=== PATIENT | female | born 1970 | race Caucasian/White ===

== ENCOUNTER 2017-10-28 07:05 | Outpatient (CLI) | payer OTHER ==
--- NOTE | 2017-10-28 10:00 | ULT ---
PELVIC ULTRASOUND: Date: 10/28/17 HISTORY: Polycystic ovarian syndrome and adhesions with pelvic pain. TECHNIQUE: Multiplanar Bowie scale and color Doppler images were obtained with a transabdominal and transvaginal pelvic ultrasound. Spectral analysis of the Doppler waveforms of the visualized ovaries were performe d. FINDINGS: The uterus is normal in size and appearance without focal abnormality. Endometrial stripe is upper li mits of normal measuring 11.0 mm. The right ovary cannot be visualized. The left ovary is normal in size and appearance and demonstrate s normal internal flow. A small amount of free fluid is seen in the cul-de-sac. IMPRESSION: No significant pelvic abnormality. POS: [facility]
== END 2017-10-28 07:06 | disposition home or self-care (01) ==
LOC: SCSULT 07:05
PROVIDERS: ATTEND Family Medicine
DX: E28.2 Polycystic ovarian syndrome (principal)
CPT/HCPCS: 76856

== ENCOUNTER 2020-02-28 08:38 | Outpatient (CLI) | payer OTHER ==
--- NOTE | 2020-02-28 09:15 | MMO ---
Bilateral MAMMO Bilat Screen [facility]. CLINICAL HISTORY: Patient is 50 years old and is seen for screening. The patient has the following family history of breast cancer: maternal aunt. The patient has no personal history of cancer. VIEWS: The views performed were: bilateral craniocaudal with tomosynthesis and bilateral mediolateral oblique with tomosynthesis. This study has been interpreted with the assistance of computer-aided detection. MAMMOGRAM FINDINGS: The breasts are heterogeneously dense, which could obscure a lesion on mammography. There are benign appearing calcifications in the left breast. There are no suspicious masses, suspicious calcifications, or new areas of architectural distortion. IMPRESSION: THERE IS NO MAMMOGRAPHIC EVIDENCE OF MALIGNANCY. A ROUTINE FOLLOW-UP MAMMOGRAM IN 1 YEAR IS RECOMMENDED. THE RESULTS OF THIS EXAM WERE SENT TO THE PATIENT. ACR BI-RADS Category 2 - Benign finding MAMMOGRAPHY NOTE: 1. A negative mammogram report should not delay a biopsy if a dominant of clinically suspicious mass is present. 2. Approximately 10% to 15% of breast cancers are not detected by mammography. 3. Adenosis and dense breasts may obscure an underlying neoplasm. Reported by: JHONATHAN GREEN MD Electonically Signed: [id number]
== END 2020-02-28 08:39 | disposition home or self-care (01) ==
LOC: BICMAMMO 08:38
PROVIDERS: ATTEND Family Medicine
DX: Z12.31 Encounter for screening mammogram for malignant neoplasm of breast (principal); Z80.3 Family history of malignant neoplasm of breast
CPT/HCPCS: 77063; 77067

== ENCOUNTER 2021-10-31 07:41 | Outpatient (CLI) | payer BC | END 2021-10-31 07:42 | disposition home or self-care (01) | LOC: BICMAMMO 07:41 | PROVIDERS: ATTEND Family Medicine | DX: Z12.31 Encounter for screening mammogram for malignant neoplasm of breast (principal); Z80.3 Family history of malignant neoplasm of breast | CPT/HCPCS: 77063; 77067 ==

== ENCOUNTER 2022-08-27 07:28 | Outpatient (CLI) | payer BC | END 2022-08-27 07:29 | disposition home or self-care (01) | LOC: TBSIIMAG 07:28 | PROVIDERS: ATTEND Orthopaedic Surgery | DX: M23.92 Unspecified internal derangement of left knee (principal); S83.512A Sprain of anterior cruciate ligament of left knee, initial encounter; S83.242A Other tear of medial meniscus, current injury, left knee, initial encounter; S83.412A Sprain of medial collateral ligament of left knee, initial encounter; S80.02XA Contusion of left knee, initial encounter; S83.282A Other tear of lateral meniscus, current injury, left knee, initial encounter ==

== ENCOUNTER 2022-11-13 09:09 | Outpatient (CLI) | payer BC | END 2022-11-13 09:10 | disposition home or self-care (01) | LOC: LABBT 09:09 | PROVIDERS: ATTEND Orthopaedic Surgery | DX: Z01.810 Encounter for preprocedural cardiovascular examination (principal); S83.512A Sprain of anterior cruciate ligament of left knee, initial encounter | CPT/HCPCS: 93005; 93010 ==

== ENCOUNTER 2023-01-01 12:53 | Outpatient (CLI) | payer BC | END 2023-01-01 12:54 | disposition home or self-care (01) | LOC: BICMAMMO 12:53 | PROVIDERS: ATTEND Family Medicine | DX: Z12.31 Encounter for screening mammogram for malignant neoplasm of breast (principal); Z80.3 Family history of malignant neoplasm of breast; Z98.890 Other specified postprocedural states | CPT/HCPCS: 77063; 77067 ==

== ENCOUNTER 2023-04-20 07:35 | Outpatient (CLI) | payer BC | END 2023-04-20 07:36 | disposition home or self-care (01) | LOC: BICCT 07:35 | PROVIDERS: ATTEND Internal Medicine Critical Care Medicine | DX: R91.1 Solitary pulmonary nodule (principal); J92.9 Pleural plaque without asbestos; J94.8 Other specified pleural conditions | CPT/HCPCS: 71250 ==

== ENCOUNTER 2025-01-12 07:53 | Outpatient (CLI) | payer BC | END 2025-01-12 07:54 | disposition home or self-care (01) | LOC: BICMAMMO 07:53 | PROVIDERS: ATTEND Family Medicine | DX: Z12.31 Encounter for screening mammogram for malignant neoplasm of breast (principal); Z80.3 Family history of malignant neoplasm of breast | CPT/HCPCS: 77063; 77067 ==